=== PATIENT | male | born 1970 | race African-American/Black ===

== ENCOUNTER 2016-08-25 05:40 | Emergency (ER) | payer SELFPAY ==
[~2016-08-25] VITALS: Ht 180.3 cm; Wt 84.0 kg
[2016-08-25 05:59] VITALS: BP 152/91
[2016-08-25] MEDS ORDERED: IBUPROFEN 800MG TABLET PO ONE (07:00)
[2016-08-25] MEDS ORDERED: LORAZEPAM 1MG TABLET PO ONE (07:00)
== END 2016-08-25 07:11 | disposition home or self-care (01) ==
LOC: ER 05:40
DX: S16.1XXA Strain of muscle, fascia and tendon at neck level, initial encounter (principal); S60.512A Abrasion of left hand, initial encounter; S80.12XA Contusion of left lower leg, initial encounter; R51 Headache; V43.52XA Car driver injured in collision with other type car in traffic accident, initial encounter; Y93.89 Activity, other specified; Y92.414 Local residential or business street as the place of occurrence of the external cause
CPT/HCPCS: 99283